=== PATIENT | male | born 1995 | race Two or more races ===

== ENCOUNTER 2017-08-13 08:19 | Emergency (ER) | payer OTHER, MEDICAID | END 2017-08-13 09:50 | disposition home or self-care (01) | LOC: M ED 08:19 | DX: S60.410A Abrasion of right index finger, initial encounter (principal); S60.412A Abrasion of right middle finger, initial encounter; W23.0XXA Caught, crushed, jammed, or pinched between moving objects, initial encounter; Y92.89 Other specified places as the place of occurrence of the external cause | CPT/HCPCS: 73140 ==